=== PATIENT | male | born 1955 | race Caucasian/White ===

== ENCOUNTER 2024-08-31 09:32 | Inpatient (IN) ==
[2024-08-31] MEDS: ONDANSETRON INJ 2 MG/ML 2 ML VIAL IV STA (09:56)
[2024-08-31] MEDS: MoRPHine SULFATE 4 MG/ML 1 ML CARP\\VIAL IV PRN (09:57)
[2024-08-31] MEDS: SODIUM CHLORIDE 0.9% 500 ML IV STA (09:57)
--- NOTE | 2024-08-31 09:58 | Emergency Department Note ---
Impression & Plan Calculus, ureteral, Acute flank pain, Abnormal EKG ED Provider Note NAME: GAUTAM TALLEY AGE: 68 SEX: M : 1955 ARRIVES VIA: Ambulance INFORMANT: Patient, ED PROVIDER(S): Tc Wise DO CHIEF COMPLAINT: Flank pain HPI: The patient is a 68-year-old male who presented to the emergency department for an evaluation of flank pain. The patient describes right-sided flank pain that began acutely today. The patient felt nauseated. He denies having any chest pain but does have pain going up his right upper back. The patient denies having any leg swelling or leg pain. He denies having any weakness. He denies having any dysuria or frequency. ROS: See above HPI for pertinent positives & negatives. A total of 10 systems reviewed and were otherwise negative. PAST MEDICAL HISTORY: See Below PAST SURGICAL HISTORY: See Below FAMILY HISTORY: See Below SOCIAL HISTORY: See Below HOME MEDICATIONS: See Below ALLERGIES: See Below VITALS: See Below PHYSICAL EXAMINATION: GENERAL: The patient is awake and alert. He is very anxious and appears to be in significant pain. EYES: The conjunctivae are clear. The pupils are round and reactive. EARS, NOSE, MOUTH AND THROAT: The nose is without any evidence of any deformity. NECK: The neck is nontender and supple. RESPIRATORY: Normal respiratory effort is noted there is no evidence of wheezing rhonchi or rales CARDIOVASCULAR: Regular rate and rhythm noted there no murmurs rubs or gallops normal S1 normal S2. GASTROINTESTINAL: The abdomen is distended. There is significant tenderness in the right upper quadrant as well as right lower quadrant. BACK: There is no midline tenderness. Right CVA tenderness was noted to percussion. MUSCULOSKELETAL/EXTREMITIES: There is no evidence of gross deformity full range of motion is noted in the hips and shoulders. SKIN: There is no obvious evidence of any rash. There are no petechiae, pallor or cyanosis noted. NEUROLOGIC: Patient is awake alert and oriented x3 strength is symmetric patellar reflexes are 2+ bilaterally MEDICAL DECISION MAKING: The patient is a 68-year-old male who presented to the emergency department for an evaluation of flank pain. The patient had an acute onset of right-sided flank pain. He presented to the emergency department and appeared to be very uncomfortable. I discussed the patient's laboratory and radiographic studies with him. He was treated with IV fluids and IV pain medication in the emergency department. On reevaluation he was somewhat improved. The patient was found to have a proximal ureteral calculus causing significant pain given his findings as well as his poor pain control he was felt to be a good candidate for inpatient management. For this reason he was discussed with the on-call [facility] hospitalist. Triage Nursing notes reviewed. Prior medical records reviewed Vital Signs: reviewed and remarkable for elevated blood pressure. Differential diagnosis: Etiologies such as appendicitis, diverticulitis, obstruction, inflammatory bowel disease, renal colic, PUD, biliary pathology, pancreatitis, mesenteric ischemia, aortic pathology, infections, genitourinary, UTI, perforated viscus, as well as others were entertained. ER treatment provided: See below Diagnostics interpreted by me: ECG: EKG was obtained in the emergency department. My interpretation is normal sinus rhythm at 61 bpm. LVH was suggested by voltage criteria. Nonspecific ST and T wave abnormalities were noted in the lateral leads. This was carried to a tracing from April 04, 2015. Ischemic changes are new compared to the previous tracing. Cardiac Monitoring: An order was placed for continuous cardiac monitoring. The monitor shows a rate of 62 bpm with sinus rhythm. Laboratory studies: As stated above and show below. Imaging studies: See below. Radiographic imaging was reviewed by myself Consultation(s): I discussed this case with Dr. Wilson who is on-call for the [facility] hospitalist group. Past Med/Surg History Problem List (Updated 08/31/24 @ 15:49 by Tc Wise DO) Abnormal EKG (Acute) Acute flank pain (Acute) Calculus, ureteral (Acute) Nonspecific ST-T wave electrocardiographic changes Ureterolithiasis Elevated PSA Medical History Hypertension Surgical History History of hip replacement, total Social History Smoking Status: Former smoker Feels Safe at Home: Yes Allergies Allergies Allergy/AdvReac Type Severity Reaction Status Date / Time No Known Drug Allergies Allergy Unknown . Verified 08/31/24 12:10 Home Meds Home Medications Medication Instructions Recorded Confirmed cholecalciferol (vitamin D3) 25 25 mcg PO DAILY ##0 10/06/15 08/31/24 mcg (1,000 unit) tablet (Vitamin D3) multivitamin 1 tab PO DAILY #0 tabs 10/06/15 08/31/24 ascorbic acid (vitamin C) 500 mg 500 mg PO DAILY 08/31/24 08/31/24 tablet (Vitamin C) glucosamine sulfate 750 mg tablet 750 mg PO DAILY 08/31/24 08/31/24 irbesartan 150 mg tablet 150 mg PO DAILY 08/31/24 08/31/24 saw palmetto 160 mg capsule 160 mg PO BID 08/31/24 08/31/24 Results & Data (ED) Vital Signs Vital Signs - 24 hr 08/31/24 09:39 08/31/24 09:52 08/31/24 09:52 Temperature 36.4 C L Temperature Source Oral Pulse Rate 63 Pulse Rate [Finger] 63 Pulse Rate from SpO2 Sensor Pulse Rhythm Regular Pulse Strength Normal Respiratory Rate 18 18 Respiratory Effort / Characteristics Non-Labored Spontaneous Non-Labored Spontaneous Respiratory Depth Normal Normal Respiratory Pattern Blood Pressure 211/109 H Blood Pressure [Left Arm] 211/109 H Blood Pressure Mean 143 Blood Pressure Mean [Left Arm] 143 Blood Pressure Position Sitting Pulse Oximetry 98 98 98 Oxygen Delivery Method Room Air Room Air Room Air Oxygen Flow Rate Sepsis Recent Fever Within 48 Hours No Sepsis New/Unexplained Change in Mental Status N/A Sepsis Action Taken by Nursing No Action Required Oxygen Flow Rate - Titration Pulse Oximetry Post Tiitration 08/31/24 10:16 08/31/24 10:16 08/31/24 11:30 Temperature Temperature Source Pulse Rate 58 L Pulse Rate [Finger] 58 L Pulse Rate from SpO2 Sensor Pulse Rhythm Pulse Strength Respiratory Rate 16 Respiratory Effort / Characteristics Non-Labored Spontaneous Respiratory Depth Normal Respiratory Pattern Regular Blood Pressure Blood Pressure [Left Arm] 200/111 H Blood Pressure Mean Blood Pressure Mean [Left Arm] 140 Blood Pressure Position Pulse Oximetry 87 L 96 Oxygen Delivery Method Room Air Nasal Cannula Nasal Cannula Oxygen Flow Rate 0 2 Sepsis Recent Fever Within 48 Hours Sepsis New/Unexplained Change in Mental Status Sepsis Action Taken by Nursing Oxygen Flow Rate - Titration 2 Pulse Oximetry Post Tiitration 98 08/31/24 12:00 08/31/24 12:53 08/31/24 13:06 Temperature Temperature Source Pulse Rate Pulse Rate [Finger] 59 L 53 L Pulse Rate from SpO2 Sensor Pulse Rhythm Pulse Strength Respiratory Rate 17 Respiratory Effort / Characteristics Non-Labored Spontaneous Respiratory Depth Normal Normal Respiratory Pattern Blood Pressure Blood Pressure [Left Arm] 167/122 H 165/91 H Blood Pressure Mean Blood Pressure Mean [Left Arm] 137 115 Blood Pressure Position Pulse Oximetry 97 95 Oxygen Delivery Method Nasal Cannula Room Air Room Air Oxygen Flow Rate 2 Sepsis Recent Fever Within 48 Hours Sepsis New/Unexplained Change in Mental Status Sepsis Action Taken by Nursing Oxygen Flow Rate - Titration Pulse Oximetry Post Tiitration 08/31/24 13:08 08/31/24 14:00 08/31/24 14:23 Temperature Temperature Source Pulse Rate 55 L 56 L 54 L Pulse Rate [Finger] Pulse Rate from SpO2 Sensor 55 L 57 L Pulse Rhythm Pulse Strength Respiratory Rate 14 18 Respiratory Effort / Characteristics Respiratory Depth Respiratory Pattern Blood Pressure 165/91 H 180/102 H Blood Pressure [Left Arm] Blood Pressure Mean 115 117 Blood Pressure Mean [Left Arm] Blood Pressure Position Pulse Oximetry 94 97 Oxygen Delivery Method Room Air Oxygen Flow Rate Sepsis Recent Fever Within 48 Hours Sepsis New/Unexplained Change in Mental Status Sepsis Action Taken by Nursing Oxygen Flow Rate - Titration Pulse Oximetry Post Tiitration 08/31/24 14:30 Temperature Temperature Source Pulse Rate 62 Pulse Rate [Finger] Pulse Rate from SpO2 Sensor 62 Pulse Rhythm Pulse Strength Respiratory Rate 14 Respiratory Effort / Characteristics Respiratory Depth Respiratory Pattern Blood Pressure 183/117 H Blood Pressure [Left Arm] Blood Pressure Mean 125 Blood Pressure Mean [Left Arm] Blood Pressure Position Pulse Oximetry 97 Oxygen Delivery Method Room Air Oxygen Flow Rate Sepsis Recent Fever Within 48 Hours Sepsis New/Unexplained Change in Mental Status Sepsis Action Taken by Nursing Oxygen Flow Rate - Titration Pulse Oximetry Post Tiitration Home Medications Current Medication List: was personally reviewed by me Laboratory Data Attestation: I reviewed the patient's lab results. 08/31/24 09:42 08/31/24 09:42 Lab Results 08/31/24 08/31/24 Range/Units 09:42 12:42 WBC 7.69 (4.8-10.8) K/ul RBC 4.73 (4.70-6.10) M/uL Hgb 14.5 (14.0-18.0) g/dl Hct 41.3 L (42.0-52.0) % MCV 87.3 (80.0-100.0) fL MCH 30.7 (25.0-34.0) pg MCHC 35.1 (32.0-36.0) g/dL RDW Std Deviation 42.1 (36.4-46.3) fL RDW Coeff of Vipul 13.1 (11.5-14.5) % Plt Count 163 (130-400) K/uL MPV 10.4 (9.4-12.4) fL Immature Gran % (Auto) 0.4 % Neut % (Auto) 78.3 % Lymph % (Auto) 15.7 % Dent % (Auto) 3.9 % Eos % (Auto) 0.9 % Baso % (Auto) 0.8 % Neut # (Auto) 6.02 (1.40-6.50) K/uL Lymph # (Auto) 1.21 (1.20-3.40) K/uL Dent # (Auto) 0.30 (0.11-0.59) K/uL Eos # (Auto) 0.07 (0.00-0.50) K/uL Baso # (Auto) 0.06 (0.00-0.20) K/uL Immature Gran # (Auto) 0.03 (0.01-0.20) K/uL PT 11.0 (9.0-12.0) Seconds INR 1.0 (0.9-1.1) APTT 26 (21-31) Seconds PTT Ratio 1.0 Sodium 138 (136-145) mmol/L Potassium 4.0 (3.5-5.1) mmol/L Chloride 107 (98-107) mmol/L Carbon Dioxide 22 (21-32) mmol/L Anion Gap 9 (3-11) BUN 18 (6-23) mg/dl Creatinine 1.07 (0.6-1.4) mg/dl Est Cr Clr Drug Dosing 78.3 ml/min eGFR 74.65 BUN/Creatinine Ratio 16.8 (10-20) Glucose 175 H (70-99(Fasting)) mg/dl Calcium 8.5 L (8.6-10.3) mg/dl Total Bilirubin 0.6 (0.2-1.0) mg/dl AST 29 (13-39) U/L ALT 39 (7-52) U/L Alkaline Phosphatase 69 (34-104) U/L Troponin I High Sens 4.7 (0-20) pg/ml Total Protein 7.0 (6.0-8.3) gm/dl Albumin 3.8 (3.4-5.0) gm/dl Globulin 3.2 (2.5-4.0) gm/dl Albumin/Globulin Ratio 1.2 (0.9-2) Triglycerides 225 H (0-150) mg/dl Cholesterol 165 (0-200) mg/dl LDL Cholesterol, Calc 78 mg/dl VLDL Cholesterol, Calc 45 H (0-30) mg/dl HDL Cholesterol 42 mg/dl Cholesterol/HDL Ratio 3.9 (0-5) Lipase 30 (11-82) U/L Urine Color Yellow Urine Appearance Clear (Clear) Urine pH 6.5 (4.5-7.5) Ur Specific [place] 1.031 H (1.000-1.030) Urine Protein Negative (Negative) Urine Glucose (UA) Negative (Negative) Urine Ketones Negative (Negative) Urine Blood Negative (Negative) Urine Nitrite Negative (Negative) Urine Bilirubin Negative (Negative) Urine Urobilinogen Negative (Negative) Ur Leukocyte Esterase Negative (Negative) Urine Comment Administered Medications Lactated Ringer's (Lr) 1,000 mls @ 125 mls/hr IV .Q8H MAK Stop: 09/03/24 14:29 Last Admin: 08/31/24 14:44 Dose: 125 mls/hr Documented By: NALLELY Morphine Sulfate (Morphine Sulfate 2 Mg/Ml Carp) 2 mg IV Q2H PRN PRN Reason: Pain Stop: 09/14/24 12:51 Last Admin: 08/31/24 15:18 Dose: 2 mg Documented By: ALEXY Discontinued Medications Sodium Chloride (Nss) 500 mls @ 999 mls/hr IV .Q31M STA Stop: 08/31/24 10:16 Last Infusion: 08/31/24 10:44 Dose: Infused Documented By: Admin: 08/31/24 09:57 Dose: 999 mls/hr Documented By: NELIA Promethazine HCl (Phenergan) 12.5 mg in 50.5 mls @ 202 mls/hr IV NOW STA Stop: 08/31/24 11:16 Last Infusion: 08/31/24 11:29 Dose: Infused Documented By: Admin: 08/31/24 11:14 Dose: 202 mls/hr Documented By: NALLELY Ceftriaxone Sodium (Rocephin) 2,000 mg in 50 mls @ 100 mls/hr IV NOW STA Stop: 08/31/24 12:01 Last Infusion: 08/31/24 13:01 Dose: Infused Documented By: Admin: 08/31/24 12:18 Dose: 100 mls/hr Documented By: NALLELY Ioversol (Optiray 320 100ml) 92 ml IV ONCE ONE Stop: 08/31/24 10:56 Last Admin: 08/31/24 10:55 Dose: 92 ml Documented By: ILYA Morphine Sulfate (Morphine Sulfate 4 Mg/Ml 1 Ml Carp\Vial) 4 mg IV Q15M PRN PRN Reason: Pain Stop: 09/14/24 09:45 Last Admin: 08/31/24 11:16 Dose: 4 mg Documented By: Admin: 08/31/24 09:57 Dose: 4 mg Documented By: NELIA Ondansetron HCl (Ondansetron Inj 2 Mg/Ml 2 Ml Vial) 4 mg IV NOW STA Stop: 08/31/24 09:47 Last Admin: 08/31/24 09:56 Dose: 4 mg Documented By: NELIA Imaging Data Attestation: I personally reviewed and interpreted this imaging study as follows: My Impression: CT of the abdomen and pelvis was obtained in the emergency department. My interpretation is dilation of the right kidney with a proximal ureteral calculus, final report below. Radiologist's Impression: Chest X-Ray 08/31/24 09:46 XR chest 1V portable CLINICAL HISTORY: flank pain COMPARISON STUDY: 04/15/2023 FINDINGS: Heart size and pulmonary vasculature are normal. No consolidation or pleural effusion. No pneumothorax. IMPRESSION: No acute findings. ACT 112: Negative or not required by law. Electronically signed by: Toi Schwarz M.D. 08/31/2024 10:25 AM Abdomen/Pelvis CT 08/31/24 09:47 CT SCAN OF THE ABDOMEN AND PELVIS WITH IV CONTRAST CLINICAL HISTORY: Right flank pain. COMPARISON STUDY: No priors TECHNIQUE: Following the IV administration of 92 cc of Optiray 320, CT scan of the abdomen and pelvis is performed from the lung bases to the proximal femora. Images are reviewed in the axial, sagittal, and coronal planes. IV contrast was administered without complication. A dose lowering technique was utilized adhering to the principles of ALARA. The examination is degraded by streak artifact from the arms which could not be elevated above the abdomen. CT DOSE: 1900.53 mGy.cm FINDINGS: Lung bases: The heart is normal in size and without pericardial effusion. There is coronary artery atherosclerosis. A small hiatal hernia is observed. The lung bases are clear noting dependent atelectasis. Liver: The contrast-enhanced liver is enlarged, measuring 19.3 cm in craniocaudal length. Attenuation is diffusely diminished indicating steatosis. Fatty sparing seen adjacent to the gallbladder fossa. There is no intrahepatic biliary ductal dilatation. The hepatic veins and portal veins are patent. Gallbladder: There are small calcified gallstones with no CT evidence of acute cholecystitis. Spleen: Normal in size and attenuation. Pancreas: Unremarkable. Adrenal glands: Unremarkable. Kidneys: The contrast enhanced kidneys are normal in size. There is a 10 mm obstructing calculus in the right proximal ureter at the level of L4 seen on axial image #205. This causes moderate right-sided hydronephrosis. There is associated right-sided perinephric stranding and fluid. No additional renal calculi are clearly identified on this contrast-enhanced examination. There is no left ureteral calculus or left-sided hydronephrosis. There is heterogeneous diminished enhancement of the right kidney as compared to the left. Abdominal vasculature: The abdominal aorta is normal in course and caliber noting mild atherosclerotic calcification. Bowel: There is no bowel obstruction. Mild fecal retention is seen throughout the colon. A duodenal diverticulum is incidentally noted. The appendix is well- visualized and normal. Peritoneum: There is no intraperitoneal free air or abdominal ascites. Lymphadenopathy: None. Pelvic viscera: Evaluation of the pelvis is degraded by streak artifact from a right hip arthroplasty. The prostate gland is enlarged and heterogeneous. The bladder wall is thickened/trabeculated indicating chronic outlet obstruction. There is a fat-containing left groin hernia. Skeletal structures: The skeletal structures are osteopenic. There is [id number] lumbosacral spondylosis. No lytic or blastic lesions are seen. A right hip arthroplasty is in place. Arthritic change is seen in the left hip. There is degenerative sclerosis of the pubic symphysis. IMPRESSION: 1. There is a 10 mm obstructing calculus in the right proximal ureter. This causes moderate right-sided hydronephrosis. 2. No additional calculi are clearly identified in either kidney on this contrast-enhanced examination. 3. There is heterogeneously diminished enhancement of the right kidney as compared to the left, which is likely secondary to obstruction/hydronephrosis. Correlate with clinical findings and urinalysis for evidence of a superimposed urinary tract infection. 4. The liver is enlarged and steatotic. 5. Coronary artery atherosclerosis. 6. Additional findings as above. ACT 112: Negative or not required by law. Electronically signed by: Yash Dale M.D. 08/31/2024 11:15 AM Discharge Plan Visit Data Chief Complaint: Cardiac Assessment Stated Complaint: BACK PAIN ED Provider: Tc Wise ED Midlevel Provider: Carol Rojo Discharge Problem: Calculus, ureteral, Acute flank pain, Abnormal EKG Patient Disposition: Being Evaluated by Hospitalist Condition: Fair Forms Stand Alone Forms: [facility] [place] [employer] Prescriptions Prescriptions: No Action multivitamin Tablet 1 tab PO DAILY Qty: 0 cholecalciferol (vitamin D3) [Vitamin D3] 25 mcg (1,000 unit) Tablet 25 mcg PO DAILY Qty: 0 ascorbic acid (vitamin C) [Vitamin C] 500 mg Tablet 500 mg PO DAILY saw palmetto 160 mg Capsule 160 mg PO BID irbesartan 150 mg tablet 150 mg PO DAILY glucosamine sulfate [Glucosamine] 750 mg Tablet 750 mg PO DAILY Rx Instructions: administer with a meal Referrals Referrals: PCP,NO [Physician] -
[2024-08-31 10:11] LABS: Hematocrit (blood only) 41.3 % (42.0-52.0); Hemoglobin 14.5 g/dl (14.0-18.0); Immature Granulocytes # (auto) 0.03 K/uL (0.01-0.20); Immature Granulocytes % (auto) 0.4 %; Mean Corpuscular Hemoglobin 30.7 pg (25.0-34.0); Mean Corpuscular Volume 87.3 fL (80.0-100.0); Platelet Count 163 K/uL (130-400); RDW Standard Deviation 42.1 fL (36.4-46.3); Red Blood Count 4.73 M/uL (4.70-6.10); White Blood Count 7.69 K/ul (4.8-10.8)
--- NOTE | 2024-08-31 10:26 | XRay Report ---
XR chest 1V portable CLINICAL HISTORY: flank pain COMPARISON STUDY: 04/15/2023 FINDINGS: Heart size and pulmonary vasculature are normal. No consolidation or pleural effusion. No p neumothorax. IMPRESSION: No acute findings. ACT 112: Negative or not required by law. Electronically signed by: Toi Schwarz M.D. 08/31/2024 10:25 AM
[2024-08-31 10:30] LABS: Alanine Aminotransferase 39.0 U/L (7-52); Albumin Globulin Ratio 1.2 (0.9-2); Alkaline Phosphatase 69.0 U/L (34-104); Anion Gap 9.0 (3-11); Bilirubin,Total 0.6 mg/dl (0.2-1.0); Blood Urea Nitrogen 18.0 mg/dl (6-23); Calcium 8.5 mg/dl (8.6-10.3); Carbon Dioxide 22.0 mmol/L (21-32); Chloride 107.0 mmol/L (98-107); Creatinine Clr Calc Pharmacy 78.3 ml/min; Globulin 3.2 gm/dl (2.5-4.0); Glucose 175.0 mg/dl (70-99(Fasting)); Lipase 30.0 U/L (11-82); Potassium 4.0 mmol/L (3.5-5.1); Sodium 138.0 mmol/L (136-145); Total Protein 7.0 gm/dl (6.0-8.3)
[2024-08-31 10:39] LABS: INR 1.0 (0.9-1.1); Partial Thromboplastin Time 26 Seconds (21-31); Prothrombin Time 11.0 Seconds (9.0-12.0)
[2024-08-31] MEDS: OPTIRAY 320 100ml IV ONE (10:55)
[2024-08-31] MEDS: PROMETHAZINE 12.5 MG/50.5 ML BAG IV STA (11:14)
--- NOTE | 2024-08-31 11:16 | CT Scan Report ---
CT SCAN OF THE ABDOMEN AND PELVIS WITH IV CONTRAST CLINICAL HISTORY: Right flank pain. COMPARISON STUDY: No priors TECHNIQUE: Following the IV administration of 92 cc of Optiray 320, CT scan of the abdomen and pelvi s is performed from the lung bases to the proximal femora. Images are reviewed in the axial, sagittal , and coronal planes. IV contrast was administered without complication. A dose lowering technique wa s utilized adhering to the principles of ALARA. The examination is degraded by streak artifact from t he arms which could not be elevated above the abdomen. CT DOSE: 1900.53 mGy.cm FINDINGS: Lung bases: The heart is normal in size and without pericardial effusion. There is coronary artery at herosclerosis. A small hiatal hernia is observed. The lung bases are clear noting dependent atelectas is. Liver: The contrast-enhanced liver is enlarged, measuring 19.3 cm in craniocaudal length. Attenuation is diffusely diminished indicating steatosis. Fatty sparing seen adjacent to the gallbladder fossa. There is no intrahepatic biliary ductal dilatation. The hepatic veins and portal veins are patent. Gallbladder: There are small calcified gallstones with no CT evidence of acute cholecystitis. Spleen: Normal in size and attenuation. Pancreas: Unremarkable. Adrenal glands: Unremarkable. Kidneys: The contrast enhanced kidneys are normal in size. There is a 10 mm obstructing calculus in t he right proximal ureter at the level of L4 seen on axial image #205. This causes moderate right-side d hydronephrosis. There is associated right-sided perinephric stranding and fluid. No additional brad l calculi are clearly identified on this contrast-enhanced examination. There is no left ureteral milo culus or left-sided hydronephrosis. There is heterogeneous diminished enhancement of the right kidney as compared to the left. Abdominal vasculature: The abdominal aorta is normal in course and caliber noting mild atheroscleroti c calcification. Bowel: There is no bowel obstruction. Mild fecal retention is seen throughout the colon. A duodenal d iverticulum is incidentally noted. The appendix is well-visualized and normal. Peritoneum: There is no intraperitoneal free air or abdominal ascites. Lymphadenopathy: None. Pelvic viscera: Evaluation of the pelvis is degraded by streak artifact from a right hip arthroplasty . The prostate gland is enlarged and heterogeneous. The bladder wall is thickened/trabeculated indica ting chronic outlet obstruction. There is a fat-containing left groin hernia. Skeletal structures: The skeletal structures are osteopenic. There is [id number] lumbosacral sp ondylosis. No lytic or blastic lesions are seen. A right hip arthroplasty is in place. Arthritic jones ge is seen in the left hip. There is degenerative sclerosis of the pubic symphysis. IMPRESSION: 1. There is a 10 mm obstructing calculus in the right proximal ureter. This causes moderate right-joelle ed hydronephrosis. 2. No additional calculi are clearly identified in either kidney on this contrast-enhanced examinatio n. 3. There is heterogeneously diminished enhancement of the right kidney as compared to the left, which is likely secondary to obstruction/hydronephrosis. Correlate with clinical findings and urinalysis f or evidence of a superimposed urinary tract infection. 4. The liver is enlarged and steatotic. 5. Coronary artery atherosclerosis. 6. Additional findings as above. ACT 112: Negative or not required by law. Electronically signed by: Yash Dale M.D. 08/31/2024 11:15 AM
[2024-08-31] MEDS: cefTRIAXone SODIUM 2,000 MG/50 ML BAG IV STA (12:18)
[2024-08-31] MEDS ORDERED: ONDANSETRON INJ 2 MG/ML 2 ML VIAL IV PRN (12:52)
[2024-08-31 13:00] LABS: Appearance Urine Clear (Clear); Glucose Urine UA Negative (Negative)
--- NOTE | 2024-08-31 13:10 | Electrocardiogram Report ---
Test Reason : Blood Pressure : */* mmHG Vent. Rate : 61 BPM Atrial Rate : 61 BPM P-R Int : 180 ms QRS Dur : 94 ms QT Int : 470 ms P-R-T Axes : 66 31 200 degrees QTcB Int : 473 ms Normal sinus rhythm Septal infarct , age undetermined Abnormal ECG When compared with ECG of 04-Apr-2015 10:03, Septal infarct is now Present T wave inversion now evident in Lateral leads QT has lengthened Confirmed by Tc Hayward ([id number]) on 08/31/2024 1:09:52 PM Referred By: Confirmed By: Tc Hayward
--- NOTE | 2024-08-31 14:18 | History & Physical Report ---
Date of Service August 31, 2024 Assessment & Plan (1) Ureterolithiasis: (2) Nonspecific ST-T wave electrocardiographic changes: Plan Pt is a 68 yo male with PMH of HTN and MARY who presented to ED with right flank pain that was found to be ureterolithiasis on CT Abd/pelvis. #Ureterolithiasis Right flank pain that began this morning with nausea correlates with CT findings of 10cm nephro/ureterolithiasis. Currently pt is afebrile with stable vitals and normal white count. Pt was treated with IV morphine for pain and 2g IV ceftriaxone. Electrolytes are in normal range at this time. - Consult placed to urology - Continue IV morphine 2mg q2h for pain control - Start LR at 125 mls/hr for mIVF - UA and and urine cx pending - Consider continued IV empiric abx pending UA - Continue NPO # EKG changes Pt's EKG in the ED showed new findings of t-wave inversions that were not presents on last EKG from 2015. Troponin in the ED was 4.7. Pt ad risk factors for CAD including age, gender, HTN and previous finding of elevated lipids with his PCP in 2023. Pt is not currently on statin medication. - Ordered Echo - Ordered lipid panel and A1c # HTN Pt's BP has been elevated since arrival in ED. Pt takes irbesartan 150mg at home last dose was AM 7/14. Home BP unknown. Pt is asymptomatic with BP's at 167-200/100-117. - Continue pain control for nephrolithiasis - Continue home BP meds when no longer NPO - Consider IV Hydroxyzine or labetalol if symptomatic Dispo: Med tele Diet: NPO Code: Full DVT prophylaxis: SCDs History of Present Illness Chief Complaint: Right flank pain Primary Care Provider: Yash Rao DO Pt is a 68 yo male with PMH of HTN and MARY who presented to ED with right flank pain that began this morning. Pt describes pain at jabbing but constant. He noted radiation of pain from posterior right flank to right lateral side and anterior abdomen. HE also endorses nausea, but denies vomiting episodes. Pt denies any GI symptoms including diarrhea, constipation, or melena. He reports regular bowel movements and usual appetite up until this morning. Pt denies urinary symptoms such as dysuria, increased urinary frequency, suprapubic pain, or hematuria. Pt endorses chronic nocturia, that is not new to this problem. Denies CP, SOB, dizziness, headaches, new myalgias/arthralgias, and numbness/tingling Allergies Allergy/AdvReac Type Severity Reaction Status Date / Time No Known Drug Allergies Allergy Unknown . Verified 08/31/24 12:10 Home Medications Medication Instructions Recorded Confirmed Type cholecalciferol (vitamin D3) 25 25 mcg PO DAILY ##0 10/06/15 08/31/24 History mcg (1,000 unit) tablet (Vitamin D3) multivitamin 1 tab PO DAILY #0 tabs 10/06/15 08/31/24 History ascorbic acid (vitamin C) 500 mg 500 mg PO DAILY 08/31/24 08/31/24 History tablet (Vitamin C) glucosamine sulfate 750 mg tablet 750 mg PO DAILY 08/31/24 08/31/24 History irbesartan 150 mg tablet 150 mg PO DAILY 08/31/24 08/31/24 History saw palmetto 160 mg capsule 160 mg PO BID 08/31/24 08/31/24 History Past Med/Surg History Problem List (Updated 08/31/24 @ 15:49 by Tc Wise DO) Abnormal EKG (Acute) Acute flank pain (Acute) Calculus, ureteral (Acute) Nonspecific ST-T wave electrocardiographic changes Ureterolithiasis Elevated PSA Medical History Hypertension Surgical History History of hip replacement, total Social History Smoking Status: Former smoker Smoking End Date: late ; Hx Alcohol Use: Yes Alcohol type: beer Hx Substance Use: No Preferred Language: German 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 External ear without deformities. Trachea midline, no thyromegaly Cardio: RRR, no murmurs or clicks. No LE edema noted Resp: CTAB, Equal bilateral chest rise, no increased work of breathing, Receiving 2L O2 via NC. ABD: Non distended, soft, non tender, normoactive bowel sounds. Right CVA tenderness, no CVA tenderness on left. MSK: Moving all 4 extremities independently Skin: Dry, of normal skin tone, Neuro: A & O x 3, normal affect Results & Data Results & Data Vital Signs (Past 12 Hours) Vital Signs Temp Pulse Pulse Resp BP BP Pulse Ox 08/31/24 13:08 55 L 14 165/91 H 94 08/31/24 13:06 53 L 17 165/91 H 95 08/31/24 12:53 08/31/24 12:00 59 L 167/122 H 97 08/31/24 11:30 58 L 16 200/111 H 96 08/31/24 10:16 58 L 08/31/24 10:16 87 L 08/31/24 09:52 63 18 211/109 H 98 08/31/24 09:52 98 08/31/24 09:39 36.4 C L 63 18 211/109 H 98 O2 Del Method O2 Flow Rate 08/31/24 13:08 Room Air 08/31/24 13:06 Room Air 08/31/24 12:53 Room Air 08/31/24 12:00 Nasal Cannula 2 08/31/24 11:30 Nasal Cannula 2 08/31/24 10:16 08/31/24 10:16 Room Air, Nasal Cannula 0 08/31/24 09:52 Room Air 08/31/24 09:52 Room Air 08/31/24 09:39 Room Air Laboratory Results 08/31/24 08/31/24 Range/Units 12:42 09:42 WBC 7.69 (4.8-10.8) K/ul RBC 4.73 (4.70-6.10) M/uL Hgb 14.5 (14.0-18.0) g/dl Hct 41.3 L (42.0-52.0) % MCV 87.3 (80.0-100.0) fL MCH 30.7 (25.0-34.0) pg MCHC 35.1 (32.0-36.0) g/dL RDW Std Deviation 42.1 (36.4-46.3) fL RDW Coeff of Vipul 13.1 (11.5-14.5) % Plt Count 163 (130-400) K/uL MPV 10.4 (9.4-12.4) fL Immature Gran % (Auto) 0.4 % Neut % (Auto) 78.3 % Lymph % (Auto) 15.7 % [place] % (Auto) 3.9 % Eos % (Auto) 0.9 % Baso % (Auto) 0.8 % Neut # (Auto) 6.02 (1.40-6.50) K/uL Lymph # (Auto) 1.21 (1.20-3.40) K/uL [place] # (Auto) 0.30 (0.11-0.59) K/uL Eos # (Auto) 0.07 (0.00-0.50) K/uL Baso # (Auto) 0.06 (0.00-0.20) K/uL Immature Gran # (Auto) 0.03 (0.01-0.20) K/uL PT 11.0 (9.0-12.0) Seconds INR 1.0 (0.9-1.1) APTT 26 (21-31) Seconds PTT Ratio 1.0 Sodium 138 (136-145) mmol/L Potassium 4.0 (3.5-5.1) mmol/L Chloride 107 (98-107) mmol/L Carbon Dioxide 22 (21-32) mmol/L Anion Gap 9 (3-11) BUN 18 (6-23) mg/dl Creatinine 1.07 (0.6-1.4) mg/dl Est Cr Clr Drug Dosing 78.3 ml/min eGFR 74.65 BUN/Creatinine Ratio 16.8 (10-20) Glucose 175 H (70-99(Fasting)) mg/dl Estimat Average Glucose Pending Hemoglobin A1c Pending Calcium 8.5 L (8.6-10.3) mg/dl Total Bilirubin 0.6 (0.2-1.0) mg/dl AST 29 (13-39) U/L ALT 39 (7-52) U/L Alkaline Phosphatase 69 (34-104) U/L Troponin I High Sens 4.7 (0-20) pg/ml Total Protein 7.0 (6.0-8.3) gm/dl Albumin 3.8 (3.4-5.0) gm/dl Globulin 3.2 (2.5-4.0) gm/dl Albumin/Globulin Ratio 1.2 (0.9-2) Triglycerides 225 H (0-150) mg/dl Cholesterol 165 (0-200) mg/dl LDL Cholesterol, Calc 78 mg/dl VLDL Cholesterol, Calc 45 H (0-30) mg/dl HDL Cholesterol 42 mg/dl Cholesterol/HDL Ratio 3.9 (0-5) Lipase 30 (11-82) U/L Urine Color Yellow Urine Appearance Clear (Clear) Urine pH 6.5 (4.5-7.5) Ur Specific [place] 1.031 H (1.000-1.030) Urine Protein Negative (Negative) Urine Glucose (UA) Negative (Negative) Urine Ketones Negative (Negative) Urine Blood Negative (Negative) Urine Nitrite Negative (Negative) Urine Bilirubin Negative (Negative) Urine Urobilinogen Negative (Negative) Ur Leukocyte Esterase Negative (Negative) Urine Comment Diagnostic Findings Chest X-Ray 08/31/24 09:46 XR chest 1V portable CLINICAL HISTORY: flank pain COMPARISON STUDY: 04/15/2023 FINDINGS: Heart size and pulmonary vasculature are normal. No consolidation or pleural effusion. No pneumothorax. IMPRESSION: No acute findings. ACT 112: Negative or not required by law. Electronically signed by: Toi Schwarz M.D. 08/31/2024 10:25 AM Abdomen/Pelvis CT 08/31/24 09:47 CT SCAN OF THE ABDOMEN AND PELVIS WITH IV CONTRAST CLINICAL HISTORY: Right flank pain. COMPARISON STUDY: No priors TECHNIQUE: Following the IV administration of 92 cc of Optiray 320, CT scan of the abdomen and pelvis is performed from the lung bases to the proximal femora. Images are reviewed in the axial, sagittal, and coronal planes. IV contrast was administered without complication. A dose lowering technique was utilized adhering to the principles of ALARA. The examination is degraded by streak artifact from the arms which could not be elevated above the abdomen. CT DOSE: 1900.53 mGy.cm FINDINGS: Lung bases: The heart is normal in size and without pericardial effusion. There is coronary artery atherosclerosis. A small hiatal hernia is observed. The lung bases are clear noting dependent atelectasis. Liver: The contrast-enhanced liver is enlarged, measuring 19.3 cm in craniocaudal length. Attenuation is diffusely diminished indicating steatosis. Fatty sparing seen adjacent to the gallbladder fossa. There is no intrahepatic biliary ductal dilatation. The hepatic veins and portal veins are patent. Gallbladder: There are small calcified gallstones with no CT evidence of acute cholecystitis. Spleen: Normal in size and attenuation. Pancreas: Unremarkable. Adrenal glands: Unremarkable. Kidneys: The contrast enhanced kidneys are normal in size. There is a 10 mm obstructing calculus in the right proximal ureter at the level of L4 seen on axial image #205. This causes moderate right-sided hydronephrosis. There is associated right-sided perinephric stranding and fluid. No additional renal calculi are clearly identified on this contrast-enhanced examination. There is no left ureteral calculus or left-sided hydronephrosis. There is heterogeneous diminished enhancement of the right kidney as compared to the left. Abdominal vasculature: The abdominal aorta is normal in course and caliber noting mild atherosclerotic calcification. Bowel: There is no bowel obstruction. Mild fecal retention is seen throughout the colon. A duodenal diverticulum is incidentally noted. The appendix is well- visualized and normal. Peritoneum: There is no intraperitoneal free air or abdominal ascites. Lymphadenopathy: None. Pelvic viscera: Evaluation of the pelvis is degraded by streak artifact from a right hip arthroplasty. The prostate gland is enlarged and heterogeneous. The bladder wall is thickened/trabeculated indicating chronic outlet obstruction. There is a fat-containing left groin hernia. Skeletal structures: The skeletal structures are osteopenic. There is [id number] lumbosacral spondylosis. No lytic or blastic lesions are seen. A right hip arthroplasty is in place. Arthritic change is seen in the left hip. There is degenerative sclerosis of the pubic symphysis. IMPRESSION: 1. There is a 10 mm obstructing calculus in the right proximal ureter. This causes moderate right-sided hydronephrosis. 2. No additional calculi are clearly identified in either kidney on this contrast-enhanced examination. 3. There is heterogeneously diminished enhancement of the right kidney as compared to the left, which is likely secondary to obstruction/hydronephrosis. Correlate with clinical findings and urinalysis for evidence of a superimposed urinary tract infection. 4. The liver is enlarged and steatotic. 5. Coronary artery atherosclerosis. 6. Additional findings as above. ACT 112: Negative or not required by law. Electronically signed by: Yash Dale M.D. 08/31/2024 11:15 AM Supervising Physician Co-Signing Physician Notes I personally examined the patient and verified all krishnan points of history and exam, discussed case, and agree with decision making with Dr Sepulveda pain under better control with morphine. Vitals noted, in general he is awake and alert pleasant no distress. HEENT normocephalic atraumatic mucous membranes moist. Breathing unlabored no accessory muscle use good effort. Skin without rashes pallor or icterus. Neuro without focal deficits. UreterolithiasisIV fluids, pain control, urology consult anticipate cystoscopy and stenting. No overt signs or symptoms of infection abnormal EKG/hypertensionsuspect LVH and probably poor baseline control of hypertension with acute elevation related to pain and stress from kidney stone. Does not show any signs or symptoms of hypertensive crisis and his troponin is normal. Echocardiogram for completeness (late addendum showed LVH as expected) otherwise as above. Resident Activity Tracking Resident Involvement: Resident Care Provided Care Provided: Adult Hospital Medicine
[2024-08-31 14:20] LABS: Cholesterol 165.0 mg/dl (0-200); HDL Cholesterol 42.0 mg/dl; Triglycerides 225.0 mg/dl (0-150)
[2024-08-31] MEDS: LACTATED RINGER'S 1,000 ML IV SCH (14:44)
[2024-08-31] MEDS: MoRPHine SULFATE 2 MG/ML CARP IV PRN (15:18)
--- NOTE | 2024-08-31 15:39 | XCELERA ---
[id number]
--- NOTE | 2024-08-31 18:47 | Billing Data ---
Date of Service August 31, 2024 Coding Level of Care Code 10104 INT INP/OBS CARE
--- NOTE | 2024-08-31 19:23 | Urology Consultation ---
Date of Consultation August 31, 2024 Assessment & Plan (1) Calculus, ureteral: The patient has been admitted to the hospital service. From a urologic perspective we recommend the following: Provide analgesics Provide antiemetics Provide IV fluid for hydration I discussed with the patient that he has a 10 mm kidney stone. Given the size and location of stone I did inform the patient that it is unlikely he will pass the stone on his own. I therefore recommend making the patient n.p.o. after mi dnight and he will be reevaluated the morning of 09/01/2024 and determination will be made if patient will require cystoscopic intervention. Of note, the patient did have some EKG changes and his echo results are noted. In addition the patient is noted to be hypertensivewe will defer further workup and management of these conditions to the hospitalist service and proceeding to the operating room for cystoscopic intervention will hinge on their recommendations. At the time of my interview patient was nontoxic-appearinghe was not hypotensive or tachycardic. He was also afebrile without leukocytosis or acute kidney injury. Therefore emergent procedure is not indicated at this time Additional recommendations be forthcoming based on his clinical course as unfolds History of Present Illness Reason for Consultation: Nephrolithiasis Attending Physician: Marcos Wilson DO History of Present Illness This is a 68-year-old male who presented to the emergency department today secondary to right flank pain. The patient says that the pain began earlier this morning with some radiation to his abdomen. He had associated nausea and vomiting. He did not report any fevers, shakes, or chills. He notes he is ur inating without difficulty and denies dysuria or hematuria. He has no history of kidney stones in the past. He does not report any mitigating factors to his pain other than it is improved with medications administered since his hospitalization. Since arrival to the hospital he has had labs and imaging which independent reviewed. Chest x-ray showed no evidence of pneumonia. A CT scan of the ab domen pelvis showed the patient had a 10 mm obstructing kidney stone in the right proximal ureter resulting in right-sided hydronephrosis. Labs included CBC white blood cell count, hemoglobin, and platelet count were normal. His hematocrit was slightly low at 41.3. Coagulation studies are normal. Chemistry profile showed sodium and potassium as well as the BUN and creatinine were normal. Urinalysis was not indicative of infection. An EKG was performed that showed T wave inversion in leads V5 and V6. The patient has subsequently undergone an echocardiogram which showed the patient had an ejection fraction of 60% with no regional wall motion abnormalities. There is no significant valvular abnormalities noted. At the time of my visit the patient was resting comfortably in bed he was in no distress Allergies Allergy/AdvReac Type Severity Reaction Status Date / Time No Known Drug Allergies Allergy Unknown . Verified 08/31/24 12:10 Home Medications Medication Instructions Recorded Confirmed Type cholecalciferol (vitamin D3) 25 25 mcg PO DAILY ##0 10/06/15 08/31/24 History mcg (1,000 unit) tablet (Vitamin D3) multivitamin 1 tab PO DAILY #0 tabs 10/06/15 08/31/24 History ascorbic acid (vitamin C) 500 mg 500 mg PO DAILY 08/31/24 08/31/24 History tablet (Vitamin C) glucosamine sulfate 750 mg tablet 750 mg PO DAILY 08/31/24 08/31/24 History irbesartan 150 mg tablet 150 mg PO DAILY 08/31/24 08/31/24 History saw palmetto 160 mg capsule 160 mg PO BID 08/31/24 08/31/24 History Patient History Medical History Hypertension Surgical History History of hip replacement, total Social History Smoking Status: Former smoker Smoking End Date: late ; Hx Alcohol Use: Yes Alcohol type: beer Hx Substance Use: No Preferred Language: Nigerien 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 Beliefs That Will Affect Care: None Current Living Situation: Spouse Other Information That Helps Us Care for You: No Feels Safe at Home: Yes Safety Concerns: Feels Safe At This Time Assistive Devices: Glasses Review of Systems Review of Systems: All systems reviewed & are unremarkable except as noted in HPI & below Physical Exam Constitutional: WD/WN, vitals as above Eyes: no conjunctival abnormality ENMT: Ears: no hearing impairment and no external ear abnormality Mouth: no oropharynx abnormality Neck: trachea midline Respiratory: normal respiratory effort; no respiratory distress and no labored breathing Cardiovascular: Rate/Rhythm: regular rate and regular rhythm Gastrointestinal (Abdomen): Soft and nontender to palpation. There is no signs of peritonitis Musculoskeletal: No calf tenderness Skin: no rashes Neurologic: moves all extremities Psychiatric: A+Ox3, euthymic affect Genitourinary: No CVA tenderness with percussion on the left. The patient had minimal (slight) CVA tenderness with percussion on the right Results & Data Vital Signs (Past 12 Hours) Vital Signs Temp Pulse Pulse Resp BP BP Pulse Ox 08/31/24 16:30 37.0 C 60 18 231/106 H 97 08/31/24 15:00 56 L 15 149/90 H 96 08/31/24 14:30 62 14 183/117 H 97 08/31/24 14:23 54 L 08/31/24 14:00 56 L 18 180/102 H 97 08/31/24 13:08 55 L 14 165/91 H 94 08/31/24 13:06 53 L 17 165/91 H 95 08/31/24 12:53 08/31/24 12:00 59 L 167/122 H 97 08/31/24 11:30 58 L 16 200/111 H 96 08/31/24 10:16 58 L 08/31/24 10:16 87 L 08/31/24 09:52 63 18 211/109 H 98 08/31/24 09:52 98 08/31/24 09:39 36.4 C L 63 18 211/109 H 98 O2 Del Method O2 Flow Rate 08/31/24 16:30 Room Air 08/31/24 15:00 Room Air 08/31/24 14:30 Room Air 08/31/24 14:23 08/31/24 14:00 08/31/24 13:08 Room Air 08/31/24 13:06 Room Air 08/31/24 12:53 Room Air 08/31/24 12:00 Nasal Cannula 2 08/31/24 11:30 Nasal Cannula 2 08/31/24 10:16 08/31/24 10:16 Room Air, Nasal Cannula 0 08/31/24 09:52 Room Air 08/31/24 09:52 Room Air 08/31/24 09:39 Room Air PG Care Time/CCT Total # of Minutes Spent Total Time Spent with Patient: Total time spent is greater than 50% in coordination of care (as documented) at patient's floor/unit and/or counseling patient: Coding Level of Care Code 16839 INT INP/OBS CARE MIN Diagnoses Calculus, ureteral N20.1
[2024-08-31 21:54] LABS: Hemoglobin A1C 5.7 % (4.5-5.6)
[2024-09-01] MEDS ORDERED: DEXAMETHASONE SOD INJ 4 MG/ML VIAL ONE (07:22)
[2024-09-01] MEDS ORDERED: ONDANSETRON INJ 2 MG/ML 2 ML VIAL ONE (07:22)
[2024-09-01] MEDS ORDERED: PROPOFOL IV EMULSION 10 MG/ML 20 ML VIAL IV ONE ×5 (07:22→11:18)
[2024-09-01] MEDS ORDERED: MIDAZOLAM HCL 1 MG/ML 2ML VIAL ONE ×2 (07:23→11:11)
--- NOTE | 2024-09-01 07:44 | Urology Progress Note ---
Date of Service September 01, 2024 Assessment & Plan (1) Calculus, ureteral: Plan: Patient again educated on this problem and management options. Recommend URS and right ureteral stent placement. Procedure was explained with him and questions answered. I did explain that he will need another procedure for stone treatment. He had ekg changes, echo ordered and completed. NPO at this time for procedure today. Reviewed with Dr. Brito. (2) Hydronephrosis: Admission and Anticipated Discharge Date Admission Date: August 31, 2024 Subjective 68 year old patient admitted last night with a 10mm right ureteral stone and right hydronephrosis. He is npo. Pain improved some today but still has right low back/flank pain. No dysuria. He did have some ekg changes and echo was completed. Physical Exam Constitutional: well developed and well nourished; no acute distress and not ill appearing Neck: normal visual inspection Respiratory: normal respiratory effort; no respiratory distress and no labored breathing Cardiovascular: Extremities: no edema Psychiatric: A+Ox3, euthymic affect Genitourinary: no CVA tenderness Results & Data Vital Signs (Past 12 Hours) Vital Signs Temp Pulse Resp BP Pulse Ox O2 Del Method 09/01/24 04:55 36.9 C 66 18 175/89 H 95 Room Air 08/31/24 23:22 36.7 C 62 18 184/89 H 95 Room Air 08/31/24 19:49 36.7 C 55 L 18 197/96 H 95 Room Air PG Care Time/CCT Total # of Minutes Spent Total Time Spent with Patient: Total time spent is greater than 50% in coordination of care (as documented) at patient's floor/unit and/or counseling patient: Coding Level of Care Code 53166 SUB INP/OBS CARE 03/14MIN Diagnoses Calculus, ureteral N20.1 Hydronephrosis N13.30
--- NOTE | 2024-09-01 08:35 | Hospitalist Progress Note ---
Date of Service September 01, 2024 Assessment & Plan (1) Hydronephrosis: (2) Abnormal EKG: (3) Acute flank pain: (4) Calculus, ureteral: (5) Nonspecific ST-T wave electrocardiographic changes: (6) Hypertension: Plan Pt is a 68 yo male with PMH of HTN and MARY who presented to ED with a 10mm calculus in the right proximal ureter with hydronephrosis. Pain managed with IV morphine and awaiting urological intervention #Ureterolithiasis Currently pt is afebrile with stable vitals and normal white count. Still experiencing some right flank pain and which is being treated with IV morphine q2hr. - Urology will reevaluate the morning of 09/01/2024 to determine if patient will require cystoscopic intervention - Continue IV morphine 2mg q2h and consider adding azo for pain control - Continue LR at 125 mls/hr for mIVF - UA normal and and urine cx pending - Discontinue IV empiric abx - Continue NPO # EKG changes Pt's EKG in the ED showed new findings of t-wave inversions that were not presents on last EKG from 2015. Troponin in the ED was 4.7. Pt ad risk factors for CAD including age, gender, HTN and previous finding of elevated lipids with his PCP in 2023. Pt is not currently on statin medication. - 09/01 echo showed mild LVH and and EF of 55-60% # HTN Pt's BP has been elevated since arrival in ED. Pt takes irbesartan 150mg at home last dose was AM 7. Hydralazine 5mg given IV last night - BP still elevated this morning at 182/95 - Continue pain control for nephrolithiasis - Continue home BP meds when no longer NPO - Ambulatory home monitoring # Elevated lipid panel - Total cholesterol was 165, HDL was 42 - TG elevated at 225 and VLDL 45 - A1C yesterday was 5.7% - Plan to manage outpatient with counselling on reducing carbs and starting a Mediterranean diet with 20-30 mins of moderate exercise. Dispo: Med tele Diet: NPO Code: Full DVT prophylaxis: SCDs Admission and Anticipated Discharge Date Admission Date: August 31, 2024 Supervising Physician Co-Signing Physician Notes I personally examined the patient and verified all krishnan points of history and exam, discussed case, and agree with decision making with Dr Valeriano Rowe MS4 feeling better since stenting. not sure if he feels good enough to get home today. definitely doing better. vitals noted nad heent nc at mmm breathing unlabored no accessory muscles good effort skin no rashes no pallor or icterus neuro no focal deficits Ureterolithiasis status post cystoscopy and stenting. Doing better. Home once symptoms are better controlled abnormal EKG/hypertension LVH, I also suspect poor baseline control of hypertension. In the acute setting obviously this would be difficult to discern given discomfort yesterday from the kidney stones and today from the stent, he certainly does not have acutely symptomatic hypertension, but my suspicion clinically is that he has got a degree of an acute elevation superimposed on poor baseline control. Would benefit from close and ongoing outpatient follow- up and lifestyle change otherwise as above. Subjective NPO since last evening. Has not has a stool since yesterday morning. Reports pain in the right flank and generalized abdominal pain. Urinating alot more frequently but no dysuria or hematuria. No chest pain, SOB, dizziness, fevers, chills. [place] nausea and had a couple episodes of retching last night after receiving meds. Review of Systems Review of Systems: As per HPI Physical Exam Physical Exam: HEENT: Moist mucosa CV: normal r/r, S1, S2, no r/m/g, no carotid bruits, radial pulses 2+ b/l, no LE edema lungs: CTA b/l, no wheezing, symmetrical chest expansion abd: hypoactive BS, nontender to palpation Back: CVA tenderness on right flank MSK: LE strength 5/5 b/l Results & Data Results & Data Vital Signs (Past 12 Hours) Vital Signs Temp Pulse Resp BP Pulse Ox O2 Del Method 09/01/24 07:43 37.2 C 75 19 182/95 H 96 Room Air 09/01/24 04:55 36.9 C 66 18 175/89 H 95 Room Air 08/31/24 23:22 36.7 C 62 18 184/89 H 95 Room Air
[2024-09-01 08:37] LABS: Hematocrit (blood only) 40.5 % (42.0-52.0); Hemoglobin 14.0 g/dl (14.0-18.0); Mean Corpuscular Hemoglobin 30.6 pg (25.0-34.0); Mean Corpuscular Volume 88.6 fL (80.0-100.0); Platelet Count 157 K/uL (130-400); RDW Standard Deviation 43.2 fL (36.4-46.3); Red Blood Count 4.57 M/uL (4.70-6.10); White Blood Count 9.23 K/ul (4.8-10.8)
[2024-09-01 08:56] LABS: Anion Gap 7.0 (3-11); Blood Urea Nitrogen 17.0 mg/dl (6-23); Calcium 8.5 mg/dl (8.6-10.3); Carbon Dioxide 26.0 mmol/L (21-32); Chloride 106.0 mmol/L (98-107); Creatinine Clr Calc Pharmacy 61.2 ml/min; Glucose 123.0 mg/dl (70-99(Fasting)); Potassium 4.0 mmol/L (3.5-5.1); Sodium 139.0 mmol/L (136-145)
[2024-09-01] MEDS ORDERED: PHENAZOPYRIDINE HCL 200 MG TAB PO PRN (09:21)
[2024-09-01] MEDS: CIPROFLOXACIN 400MG / 200ML D5W IV ONE (11:00)
--- NOTE | 2024-09-01 11:07 | Anesthesiology Consultation ---
Date of Service September 01, 2024 Assessment & Plan Chart Review Chart Review: Acceptable Risk for Surgery and Patient NOT seen in Pre Admission Testing Consults Requested none ASA ASA3 Proposed Anesthesia Anesthesia Type: MAC Risk / Benefits Reviewed With: PT / POA / Parent / Guardian, Accepts Plan and Informed Consent Obtained History Surgery Operation Date: 09/01/24 08:50 Proposed Procedures p Cystoscopy Right Ureteroscopy and Stent Placement - Basil Brito MD Height/Weight Height: 5 ft 10 in Weight: 103 kg Allergies Allergy/AdvReac Type Severity Reaction Status Date / Time No Known Drug Allergies Allergy Unknown . Verified 08/31/24 12:10 Medications Home Medications Medication Instructions Recorded Confirmed Last Taken cholecalciferol (vitamin D3) 25 25 mcg PO DAILY ##0 10/06/15 08/31/24 08/30/24 mcg (1,000 unit) tablet (Vitamin D3) multivitamin 1 tab PO DAILY #0 tabs 10/06/15 08/31/24 08/30/24 ascorbic acid (vitamin C) 500 mg 500 mg PO DAILY 08/31/24 08/31/24 08/30/24 tablet (Vitamin C) glucosamine sulfate 750 mg tablet 750 mg PO DAILY 08/31/24 08/31/24 08/30/24 irbesartan 150 mg tablet 150 mg PO DAILY 08/31/24 08/31/24 08/31/24 saw palmetto 160 mg capsule 160 mg PO BID 08/31/24 08/31/24 08/30/24 Active Medications Generic Name Dose Route Start Last Admin Trade Name Freq PRN Reason Stop Dose Admin Lactated Ringer's 1,000 mls @ 125 mls/hr 08/31/24 14:30 09/01/24 05:58 Lr IV 09/03/24 14:29 125 mls/hr .Q8H MAK Administration Morphine Sulfate 2 mg 08/31/24 12:52 09/01/24 04:40 Morphine Sulfate 2 Mg/Ml Carp IV 09/14/24 12:51 2 mg Q2H PRN Administration Pain NPO Date Last Intake of Fluids: 08/31/24 Time Last Intake of Fluids: 21:30 Date Last Intake of Solids: 08/31/24 Time Last Intake of Solids: 20:00 Past Medical History Medical History Hypertension hydronephrosis obese [place] HTN ASCVD Aorta Exercise / Class Metabolic Activity II 4-5 Yardwork/Stairs/Walk up hill Past Surgical History Surgical History History of hip replacement, total Past Anesthesia History No Hx of Anesthesia Complications and No Family Hx of Anesthesia Complications History of PONV No Hx of PONV and No Hx of Motion Sickness Social History Smoking Status: Former smoker Smoking End Date: late Hx Alcohol Use: Yes Alcohol type: beer alcohol intake frequency: holidays/special occasions only Hx Substance Use: No substance use type: does not use Physical Exam Vital Signs Last Vital Signs Temp 36.7 C 09/01/24 10:47 Pulse 71 09/01/24 10:47 Resp 20 09/01/24 10:47 BP 182/95 H 09/01/24 07:43 Pulse Ox 97 09/01/24 10:47 O2 Del Method Room Air 09/01/24 10:47 O2 Flow Rate 2 08/31/24 12:00 Constitutional + obese; no acute distress ENMT Mouth: no TMJ abnormality and no dentition abnormality Thyromental Distance: > or= 3.5 Finger Breadths Mallampati Class: II Neck normal visual inspection and trachea midline; neck extension not limited Respiratory normal respiratory effort Auscultation: lungs clear to auscultation bilaterally Cardiovascular Rate/Rhythm: regular rate and regular rhythm Heart Sounds: no murmur Vessels: no carotid bruit Musculoskeletal Spine: normal cervical ROM and no pain with cervical ROM Extremities: extremities normal to inspection; full ROM of extremities Neurologic moves all extremities Motor/Sensory: no sensory deficit Psychiatric Orientation: alert and oriented x 3 Testing Laboratory Results 09/01/24 08:26 09/01/24 08:26 PT 11.0 Seconds (9.0-12.0) 08/31/24 09:42 INR 1.0 (0.9-1.1) 08/31/24 09:42 APTT 26 Seconds (21-31) 08/31/24 09:42 Hemoglobin A1c 5.7 % (4.5-5.6) H 08/31/24 09:42 Urine Color Yellow 08/31/24 12:42 Urine Appearance Clear (Clear) 08/31/24 12:42 Urine pH 6.5 (4.5-7.5) 08/31/24 12:42 Ur Specific [place] 1.031 (1.000-1.030) H 08/31/24 12:42 Urine Protein Negative (Negative) 08/31/24 12:42 Urine Glucose (UA) Negative (Negative) 08/31/24 12:42 Urine Ketones Negative (Negative) 08/31/24 12:42 Urine Nitrite Negative (Negative) 08/31/24 12:42 Ur Leukocyte Esterase Negative (Negative) 08/31/24 12:42
[2024-09-01] MEDS ORDERED: NALOXONE HCL 0.4 MG/1 ML VIAL/CARP IV PRN (11:12)
[2024-09-01] MEDS ORDERED: ONDANSETRON INJ 2 MG/ML 2 ML VIAL IV PRN (11:12)
[2024-09-01] MEDS ORDERED: PROMETHAZINE HCL 6.25 MG in SODIUM CHLORIDE 0.9% 50 ML IV PRN (11:12)
[2024-09-01] MEDS ORDERED: FLUMAZENIL 0.1 MG/1 ML 10 ML VIAL IV PRN (11:12)
[2024-09-01] MEDS ORDERED: ATROPINE SULFATE 0.1 MG/ML 10ML SYR IV PRN (11:12)
--- NOTE | 2024-09-01 11:12 | Communication Note ---
Date of Service: September 01, 2024 08/31/[id number] @ 59;septal infarct ,age ?;ST & T abnl 08/31/2024- Echo-EF 55% ; LVH-mild LV- NL Fxn; no valve issues
--- NOTE | 2024-09-01 11:32 | Operative Report ---
PG Post Operative Report Pre & Post Diagnosis Operation Date: 09/01/24 08:50 Pre-Op Diagnosis: Right Ureteral Calculus, Right Hydronephrosis Post-Op Diagnosis: Right Ureteral Calculus, Right Hydronephrosis I identified the patient and participated in the time-out.: Yes Procedure Operation Date: 09/01/24 08:50 Actual Procedures p Cystoscopy, Right Ureteroscopy, Insertion Right Ureteral Stent(Right) - Basil Brito MD Surgeon Basil Brito MD Store Clerk Cashier none Estimated Blood Loss 0 Findings Consistent with Post-Op Diagnosis Specimens none Description of Procedure The patient was identified in the preoperative holding area, appropriate informed consents were reviewed and completed and the patient was transferred to the operative suite. Upon arrival, appropriate antibiotics and anesthesia were administered and the patient was placed in dorsal lithotomy position and prepped and draped in sterile fashion. Begin the case I passed a 21 Vietnamese cystoscope a 30 degree lens per inspection revealed a healthy appearing urethra until the bulb where he had a notable urethral stricture but it was wide enough that I could navigate the scope through it which in turn dilated the stricture without trauma. Prostate was moderately enlarged with a relatively high bladder neck. Full inspection of the bladder revealed healthy bladder mucosa and ureteral orifices that were in orthotopic position. I turned my attention to the right UO and cannulated with a sensor wire and a 5 Vietnamese open-ended catheter. I could visualize a stone in the proximal ureter which was easily identified on fluoroscopy. The wire bypassed this without difficulty and I proceeded to place a 6 Vietnamese by 26 cm double-J stent. There were no complications. He was reversed of anesthesia and taken the recovery room in stable condition. I attest to the content of the Intraoperative Record and any orders documented therein. Any exceptions are noted below.
--- NOTE | 2024-09-01 12:38 | Anesthesiology Progress Note ---
Date of Service September 01, 2024 Anesthesia Post Procedure Vital Signs Vital Signs: Temp Pulse Pulse Pulse Resp BP BP 09/01/24 11:50 73 17 167/86 H 09/01/24 11:45 36.6 C 76 18 162/89 H 09/01/24 11:37 36.3 C L 76 14 180/106 H 09/01/24 10:47 36.7 C 71 20 197/96 H 09/01/24 10:18 67 09/01/24 07:43 37.2 C 75 19 182/95 H 09/01/24 04:55 36.9 C 66 18 175/89 H 08/31/24 23:22 36.7 C 62 18 184/89 H 08/31/24 19:49 36.7 C 55 L 18 197/96 H 08/31/24 16:30 37.0 C 60 18 231/106 H 08/31/24 15:00 56 L 15 149/90 H 08/31/24 14:30 62 14 183/117 H 08/31/24 14:23 54 L 08/31/24 14:00 56 L 18 180/102 H 08/31/24 13:08 55 L 14 165/91 H 08/31/24 13:06 53 L 17 165/91 H 08/31/24 12:53 Pulse Ox O2 Del Method O2 Flow Rate 09/01/24 11:50 96 Room Air 09/01/24 11:45 97 Oxymask 2 09/01/24 11:37 97 Oxymask 6 09/01/24 10:47 97 Room Air 09/01/24 10:18 09/01/24 07:43 96 Room Air 09/01/24 04:55 95 Room Air 08/31/24 23:22 95 Room Air 08/31/24 19:49 95 Room Air 08/31/24 16:30 97 Room Air 08/31/24 15:00 96 Room Air 08/31/24 14:30 97 Room Air 08/31/24 14:23 08/31/24 14:00 97 08/31/24 13:08 94 Room Air 08/31/24 13:06 95 Room Air 08/31/24 12:53 Room Air Pain Intensity Right Flank: Pain Intensity: 10 Transfer of Care Handoff Completed per policy Notes Mental Status: alert / awake / arousable Patient Amnestic to Procedure: Yes Nausea / Vomiting: adequately controlled Pain: adequately controlled Airway Patency, RR, SpO2: stable & adequate BP & HR: stable & adequate Hydration State: stable & adequate Anesthetic Complications: no major complications apparent
[2024-09-01] MEDS: CIPROFLOXACIN / D5W 400 MG/200 ML BAG IV STA (12:39)
[2024-09-01] MEDS: LOSARTAN POTASSIUM 50 MG TAB PO SCH (13:28)
--- NOTE | 2024-09-01 13:31 | Fluoroscopy Report ---
FL KUB CLINICAL HISTORY: RIGHT COMPARISON STUDY: None FLUOROSCOPY TIME: 5 seconds FLUOROSCOPY IMAGES: 2 EXPOSURE DOSE: 2.6 mGy FINDINGS: Fluoroscopy was provided for urologic procedure. IMPRESSION: Intraoperative fluoroscopy. ACT 112: Negative or not required by law. Electronically signed by: Toi Schwarz M.D. 09/01/2024 1:30 PM
[2024-09-01] MEDS: LABETALOL HCL IV 5 MG/ML 20ML IV STA (14:34)
--- NOTE | 2024-09-01 18:07 | Billing Data ---
Date of Service September 01, 2024 Coding Level of Care Code 31149 SUB INP/OBS CARE
[2024-09-01] MEDS: ZOLPIDEM TARTRATE 5 MG TAB PO PRN (22:03)
[2024-09-02] MEDS: ACETAMINOPHEN 500 MG TAB PO PRN (06:26)
[2024-09-02 06:47] LABS: Hematocrit (blood only) 46.3 % (42.0-52.0); Hemoglobin 16.2 g/dl (14.0-18.0); Mean Corpuscular Hemoglobin 30.6 pg (25.0-34.0); Mean Corpuscular Volume 87.4 fL (80.0-100.0); Platelet Count 176 K/uL (130-400); RDW Standard Deviation 42.5 fL (36.4-46.3); Red Blood Count 5.30 M/uL (4.70-6.10); White Blood Count 8.88 K/ul (4.8-10.8)
[2024-09-02 07:19] LABS: Anion Gap 10.0 (3-11); Blood Urea Nitrogen 13.0 mg/dl (6-23); Calcium 9.2 mg/dl (8.6-10.3); Carbon Dioxide 24.0 mmol/L (21-32); Chloride 104.0 mmol/L (98-107); Creatinine Clr Calc Pharmacy 104.6 ml/min; Glucose 151.0 mg/dl (70-99(Fasting)); Potassium 3.7 mmol/L (3.5-5.1); Sodium 138.0 mmol/L (136-145)
--- NOTE | 2024-09-02 08:06 | Urology Progress Note ---
Date of Service September 02, 2024 Assessment & Plan (1) Hydronephrosis: (2) Calculus, ureteral: Plan: POD 1 from right ureteral stent placement for ureteral stone and hydronephrosis BP 186/96 HR 94 at last documentation. Afebrile. wbc 8.88, hgb 16.2, Cr 0.79 Pain is reasonably controlled, improved from preop Reassured him about the hematuria Hypertension management per hospitalist service Will need stone management. Discussed possible ESWL but will await scheduling from the office. Admission and Anticipated Discharge Date Admission Date: August 31, 2024 Subjective 68 year old patient POD 1 from right ureteral stent placement Pain reasonably controlled. Does have some discomfort, reports some hematuria Blood pressure has been elevated Physical Exam Constitutional: well developed and well nourished; no acute distress and not ill appearing Respiratory: normal respiratory effort; no respiratory distress and no labored breathing Gastrointestinal (Abdomen): Percussion/Palpation: abdomen nontender Psychiatric: A+Ox3, euthymic affect Genitourinary: no CVA tenderness Results & Data Vital Signs (Past 12 Hours) Vital Signs Temp Pulse Pulse Pulse Resp BP BP 09/02/24 05:59 186/96 H 09/02/24 05:35 94 H 09/02/24 03:53 36.8 C 81 20 228/119 H 09/01/24 23:38 68 09/01/24 23:35 170/83 H 09/01/24 22:21 37.0 C 74 18 210/101 H 222/96 H 09/01/24 21:05 37.2 C 84 24 215/115 H Pulse Ox O2 Del Method 09/02/24 05:59 09/02/24 05:35 09/02/24 03:53 97 Room Air 09/01/24 23:38 09/01/24 23:35 09/01/24 22:21 98 Room Air 09/01/24 21:05 95 Room Air PG Care Time/CCT Total # of Minutes Spent Total Time Spent with Patient: Total time spent is greater than 50% in coordination of care (as documented) at patient's floor/unit and/or counseling patient: Coding Level of Care Code 79731 SUB INP/OBS CARE 25MIN Diagnoses Hydronephrosis N13.30 Calculus, ureteral N20.1
[2024-09-02 08:20] VITALS: RESP 18; TEMP 98.1
--- NOTE | 2024-09-02 10:19 | Discharge Summary ---
Date of Service September 02, 2024 Admission HPI Per Admitting Provider Pt is a 68 yo male with PMH of HTN and MARY who presented to ED with right flank pain that began this morning. Pt describes pain at jabbing but constant. He noted radiation of pain from posterior right flank to right lateral side and anterior abdomen. HE also endorses nausea, but denies vomiting episodes. Pt denies any GI symptoms including diarrhea, constipation, or melena. He reports regular bowel movements and usual appetite up until this morning. Pt denies urinary symptoms such as dysuria, increased urinary frequency, suprapubic pain, or hematuria. Pt endorses chronic nocturia, that is not new to this problem. Denies CP, SOB, dizziness, headaches, new myalgias/arthralgias, and numbness/tingling Discharge Data Consultations 08/31/24 11:43 ED Decision to Admit Stat 08/31/24 12:52 Consult Urology Routine Procedures Performed Operation Date: 09/01/24 08:50 Actual Procedures p Cystoscopy, Right Ureteroscopy, Insertion Right Ureteral Stent(Right) - Basil Brito MD
[2024-09-02 11:23] VITALS: PULSE 76; O2SAT 97
[2024-09-02 11:31] VITALS: BP 197/109
--- NOTE | 2024-09-02 12:58 | Discharge Summary ---
Date of Service September 02, 2024 Admission HPI Per Admitting Provider Pt is a 68 yo male with PMH of HTN and MARY who presented to ED with right flank pain that began this morning. Pt describes pain at jabbing but constant. He noted radiation of pain from posterior right flank to right lateral side and anterior abdomen. HE also endorses nausea, but denies vomiting episodes. Pt denies any GI symptoms including diarrhea, constipation, or melena. He reports regular bowel movements and usual appetite up until this morning. Pt denies urinary symptoms such as dysuria, increased urinary frequency, suprapubic pain, or hematuria. Pt endorses chronic nocturia, that is not new to this problem. Denies CP, SOB, dizziness, headaches, new myalgias/arthralgias, and numbness/tingling Admission Exam Per Admitting Provider Gen: NAD, resting comfortably after dose of morphine HENT: Normocephalic, atraumatic. External ear without deformities. Trachea midline, no thyromegaly Cardio: RRR, no murmurs or clicks. No LE edema noted Resp: CTAB, Equal bilateral chest rise, no increased work of breathing, Receiving 2L O2 via NC. ABD: Non distended, soft, non tender, normoactive bowel sounds. Right CVA tenderness, no CVA tenderness on left. MSK: Moving all 4 extremities independently Skin: Dry, of normal skin tone, Neuro: A & O x 3, normal affect Principal Diagnosis Nephrolithiasis Discharge Exam HEENT: Moist mucosa CV: normal r/r, S1, S2, no r/m/g, no carotid bruits, radial pulses 2+ b/l, no LE edema lungs: CTA b/l, no wheezing, symmetrical chest expansion abd: Normal BS, nontender to palpation Back: No CVA tenderness b/l MSK: LE strength 5/5 b/l Discharge Data Allergies Allergy/AdvReac Type Severity Reaction Status Date / Time No Known Drug Allergies Allergy Unknown . Verified 08/31/24 12:10 Consultations 08/31/24 11:43 ED Decision to Admit Stat 08/31/24 12:52 Consult Urology Routine Procedures Performed Operation Date: 09/01/24 08:50 Actual Procedures p Cystoscopy, Right Ureteroscopy, Insertion Right Ureteral Stent(Right) - Basil Brito MD Ordered Studies 08/31/24 09:47 CT abd pelvis IV con only Stat 09/01/24 FL KUB Routine Hospital Course (1) Hydronephrosis: (2) Calculus, ureteral: Plan Plan Pt is a 68 yo male with PMH of HTN and MARY who presented to ED with a 10mm calculus in the right proximal ureter with hydronephrosis. #Ureterolithiasis - Continue tylenol PRN for pain control - Await for urology to schedule Lithotripsy # EKG changes - EKG in the ED showed new findings of t-wave inversions that were not presents on last EKG from 2015. Troponin in the ED was 4.7. Pt ad risk factors for CAD including age, gender, HTN and previous finding of elevated lipids with his PCP in 2023. Pt is not currently on statin medication. - 09/01 echo showed mild LVH and and EF of 55-60% - f/u with PCP # HTN - Pt's BP has been elevated since arrival in ED. Pt takes irbesartan 150mg at home last dose was AM 08/31. - BP still elevated this morning at 182/95 - Continue home BP meds - Ambulatory home monitoring # Elevated lipid panel - Total cholesterol was 165, HDL was 42 - TG elevated at 225 and VLDL 45 - A1C 08/31 was 5.7% - Manage outpatient with counseling on reducing carbs and starting a Mediterranean diet with 20-30 mins of moderate exercise. Total Time Total Time Spent Total Time Spent (In Minutes): <30 Discharge Plan Discharge Items Patient Disposition: Home - Self-Care Reason For Visit: NEPHROLITHAISIS Discharge Diagnosis: Nephrolithiasis Condition on Discharge: Fair Activity: Resume your previous activity Non-emergency contact: Primary Care Provider Call non-emergency contact if: your symptoms worsen Follow-up/Referrals: Basil Brito MD [Physician] - Raf Smith DO [Resident] - 09/09/24 9:05 am Diet: Heart Healthy Addtl Attending Provider Instructions: You were admitted to the hospital for right flank pain which was found to be caused by a kidney stone that has moved to your ureter. Urology placed a stent in your right ureter to receive the pressure and pain. Please follow up with Urology for further outpatient management. During the labs and testing for your right flank pain, an EKG noted changes that could have indicated some heart damage. We ordered an echocardiogram which was reassuring for cardiac function. However, your blood pressure has been relatively high during your stay. At this time we recommend that you continue your home dose of irbesartan, and follow up with your PCP in 7-10 days to discuss any changes in blood pressure medication. Pending Studies at Discharge: No Stand-Alone Forms: My [facility], Smoking Cessation Medications and DC Order Prescriptions: Continued multivitamin Tablet 1 tab PO DAILY Qty: 0 cholecalciferol (vitamin D3) [Vitamin D3] 25 mcg (1,000 unit) Tablet 25 mcg PO DAILY Qty: 0 ascorbic acid (vitamin C) [Vitamin C] 500 mg Tablet 500 mg PO DAILY saw palmetto 160 mg Capsule 160 mg PO BID irbesartan 150 mg tablet 150 mg PO DAILY glucosamine sulfate 750 mg Tablet 750 mg PO DAILY Rx Instructions: administer with a meal Discharge Orders: Discharge Order (Routine); Ordered 09/02/24 Ordered By: Abby Coles/Other Patient Handouts: Preventing Kidney Stones Admission Data Admit Date/Time: 08/31/24 14:46 Attending Provider: Marcos Wilson Admit Provider: Abby Sepulveda Primary Care Provider: Yash Rao Other Providers: Marcos Wilson; Ronnie Dunne Other Interventions: Discharge Summary Assessment (RN) Last Done: 09/02/24 11:30 Supervising Physician Co-Signing Physician Notes I personally examined the patient and verified all krishnan points of history and exam, discussed case, and agree with decision making with Dr Valeriano Rowe MS4 Feels better. Feels up to going home. Vitals noted, in general he is awake and alert pleasant no distress. HEENT normocephalic atraumatic mucous membranes moist. Breathing unlabored no accessory muscle use good effort. Skin without rashes pallor or icterus. Neuro without focal deficits. Ureterolithiasis status post cystoscopy and stenting. Doing better. Outpatient urology follow-up. abnormal EKG/hypertension LVH, I also suspect poor baseline control of hypertension. Discussed lifestyle change extensively, and he did note that whenever he was eating better his blood pressure was easier to control. Discussed diet and exercise extensively, and in depth. Home with current medications, home monitoring, close PCP follow-up and medication adjustments as well as aggressive lifestyle change. otherwise as above.
--- NOTE | 2024-09-02 16:05 | Billing Data ---
Date of Service September 02, 2024 Coding Level of Care Code 85248 IN/OBS DISCH 30 MIN/LESS
== END 2024-09-02 12:18 | disposition home or self-care (01) | DRG 661 ==
LOC: ED 09:32 → 2N 14:46